=== PATIENT | female | born 1985 | race Caucasian/White ===

== ENCOUNTER 2016-10-12 01:54 | Emergency (ER) | payer MEDICAID, OTHER ==
[2016-10-12 01:54] VITALS: BMI 31.6
[2016-10-12 02:05] VITALS: TEMP 98.2
[2016-10-12] MEDS ORDERED: DiphenhydrAMINE 50 mg/ml Inj IVP ONE (02:14)
--- NOTE | 2016-10-12 02:14 | ED PDOC ---
Arrival/HPI - General Chief Complaint: Allergic Reaction Time Seen by Provider: 10/12/16 02:01 Historian: Patient, Spouse - History of Present Illness Narrative History of Present Illness (Text): 10/12/16 02:13 Janelle Vidal is a 30 year old female who presents to the Emergency department accompanied by complaining of a rash. Patient states, via acting as technical service representative, began experiencing a diffuse pruritic tonight. Patient denies any changes in diet, deodorants, lotions, or soaps. Patient notes she was trying on new clothes while shopping today. Patient denies any facial/ tongue swelling, shortness of breath, nausea, vomiting, diarrhea, headache, dizziness, or any other complaints. Time/Duration: Other (tonight) Symptom Onset: Gradual Symptom Course: Unchanged Activities at Onset: Rest, Light Context: Home Past Medical History - Provider Review Nursing Documentation Reviewed: Yes - Psychiatric Hx Substance Use: No Family/Social History - Physician Review Nursing Documentation Reviewed: Yes Family/Social History: No Known Family HX Smoking Status: n Hx Alcohol Use: No Hx Substance Use: No Allergies/Home Meds Allergies/Adverse Reactions: Allergies No Known Allergies Allergy (Verified 11/09/14 17:42) Home Medications: Home Meds Medication Instructions Recorded Confirmed Vit#96/Ferrous Fum/FA 1 tab PO DAILY 03/15/15 03/15/15 [] Review of Systems - Physician Review All systems were reviewed & negative as marked: Yes - Review of Systems Constitutional: Normal. absent: Fevers Eyes: Normal ENT: Normal Respiratory: Normal. absent: SOB, Cough Cardiovascular: Normal. absent: Chest Pain Gastrointestinal: Normal. absent: Abdominal Pain, Diarrhea, Nausea, Vomiting Genitourinary Female: Normal. absent: Dysuria, Frequency, Hematuria, Urine Output Changes Musculoskeletal: Normal. absent: Back Pain, Neck Pain Skin: Rash, Pruritis Neurological: Normal. absent: Headache, Dizziness Endocrine: Normal Hemo/Lymphatic: Normal Psychiatric: Normal Physical Exam Vital Signs Reviewed: Yes Vital Signs Temp Pulse Resp BP Pulse Ox 10/12/16 03:08 68 16 120/69 97 10/12/16 02:02 98.2 F 74 18 104/60 99 Temperature: Afebrile Blood Pressure: Normal Pulse: Regular Respiratory Rate: Normal Appearance: Positive for: Well-Appearing, Non-Toxic, Comfortable Pain Distress: None Mental Status: Positive for: Alert and Oriented X 3 - Systems Exam Head: Present: Atraumatic, Normocephalic Pupils: Present: PERRL Extroacular Muscles: Present: EOMI Conjunctiva: Present: Normal Mouth: Present: Moist Mucous Membranes Neck: Present: Normal Range of Motion Respiratory/Chest: Present: Clear to Auscultation, Good Air Exchange. No: Respiratory Distress, Accessory Muscle Use Cardiovascular: Present: Regular Rate and Rhythm, Normal S1, S2. No: Murmurs Abdomen: Present: Normal Bowel Sounds. No: Tenderness, Distention, Peritoneal Signs Back: Present: Normal Inspection Upper Extremity: Present: Normal Inspection. No: Cyanosis, Edema Lower Extremity: Present: Normal Inspection. No: Edema Neurological: Present: GCS=15, CN II-XII Intact, Speech Normal Skin: Present: Warm, Dry, Rashes (Diffuse urticaria), Normal Color Psychiatric: Present: Alert, Oriented x 3, Normal Insight, Normal Concentration Medical Decision Making ED Course and Treatment: 10/12/16 02:14 Impression: 30 year old female complaining of diffuse pruritic rash tonight. Differential Diagnosis include but are not limited to: allergic reaction vs. urticaria Plan: -- Benadryl -- Solu-medrol -- Reassess and disposition Progress Notes: - Medication Orders Current Medication Orders: Discontinued Medications Diphenhydramine HCl (Benadryl) 25 mg IVP ONCE ONE Stop: 10/12/16 02:15 Last Admin: 10/12/16 02:22 Dose: 25 mg Methylprednisolone (Solu-Medrol) 125 mg IVP ONCE ONE Stop: 10/12/16 02:15 Last Admin: 10/12/16 02:22 Dose: 125 mg - Scribe Statement The provider has reviewed the documentation as recorded by the Miesha Engle All medical record entries made by the Miesha were at my direction and personally dictated by me. I have reviewed the chart and agree that the record accurately reflects my personal performance of the history, physical exam, medical decision making, and the department course for this patient. I have also personally directed, reviewed, and agree with the discharge instructions and disposition. Disposition/Present on Arrival - Present on Arrival Any Indicators Present on Arrival: No History of DVT/PE: No History of Uncontrolled Diabetes: No Urinary Catheter: No History of Decub. Ulcer: No History Surgical Site Infection Following: None - Disposition Have Diagnosis and Disposition been Completed?: Yes Diagnosis: Urticaria Disposition: HOME/ ROUTINE Disposition Time: 03:30 Condition: GOOD Discharge Instructions (ExitCare): Urticaria (ED) Prescriptions: hydrOXYzine HCl [Atarax] 25 mg PO Q8H #12 tab predniSONE [predniSONE Tab] 20 mg PO TID #15 tab
[2016-10-12 03:09] VITALS: BP 120/69; PULSE 68; RESP 16; O2SAT 97
== END 2016-10-12 03:37 | disposition home or self-care (01) ==
LOC: ED 01:54
DX: L50.9 Urticaria, unspecified (principal)
CPT/HCPCS: 96374; 96375; 99284; J1200; J2930